=== PATIENT | male | born 1960 | race Caucasian/White ===

== ENCOUNTER 2018-03-16 07:15 | Inpatient (IN) | payer OTHER ==
[2018-03-16] MEDS ORDERED: LR 1,000 ML IV ONE (08:55)
[2018-03-16] MEDS ORDERED: DEXMEDETOMIDINE HCL 400 MCG in NS 100 ML IV SCH (09:00)
[2018-03-16] MEDS ORDERED: BUPIVACAINE 0.25% 30 ML SDV ONE (09:20)
[2018-03-16] MEDS ORDERED: THROMBIN (BOVINE) 20,000 UNIT VIAL TP ONE (09:20)
[2018-03-16] MEDS ORDERED: CHLORHEXIDINE GLUC HIBICLENS 118 ML BTL TP ONE (09:20)
[2018-03-16] MEDS ORDERED: BACITRACIN 50,000 UNITS/10 ML SYR IRR ONE (09:21)
[2018-03-16] MEDS ORDERED: morphINE PF 5 MG/10 ML INJ IT ONE (09:38)
[2018-03-16] MEDS ORDERED: ACETAMINOPHEN 500 MG TAB PO ONE (09:38)
[2018-03-16] MEDS ORDERED: ceFAZolin 2 GM/SWFI 2 GM/20 ML SYR IVP ONE (09:38)
[2018-03-16] MEDS ORDERED: GABAPENTIN 300 MG CAP PO ONE (09:38)
--- NOTE | 2018-03-16 09:38 | PDHPUP ---
History & Physical Update H&P update statement: This history and physical update is based on an assessment of the patient which was completed after admission or registration (within 24 hours), but prior to the surgery/procedure. H&P update: H&P reviewed & patient examined, no change in patient's condition since H&P completed (All questions answered and consents siged. Site marked. )
[2018-03-16] MEDS ORDERED: morphINE SR 15 MG TAB PO ONE (09:40)
[2018-03-16] MEDS ORDERED: CITRATE DEXTROSE SOLN 500 ML BAG ONE (09:54)
--- NOTE | 2018-03-16 10:00 | PDANEPAE ---
ANE History of Present Illness 57 yo male with lumbar stenosis and B LE weakness. ANE Past Medical History - Cardiovascular History Hx Hypertension: Yes Hx Arrhythmias: No Hx Chest Pain: No Hx Coronary Artery / Peripheral Vascular Disease: No Hx CHF / Valvular Disease: No Cardiovascular History Comment: ELEVATED CHOLESTEROL - Pulmonary History Hx COPD: No Hx Asthma/Reactive Airway Disease: No Hx Recent Upper Respiratory Infection: No Hx Oxygen in Use at Home: No Hx Sleep Apnea: No Sleep Apnea Screening Result - Last Documented: Positive - Neurologic History Hx Cerebrovascular Accident: No Hx Seizures: No Hx Dementia: No - Endocrine History Hx Diabetes: No Hypothyroid: No Obesity: no - Renal History Hx Renal Disorders: No - Liver History Hx Hepatic Disorders: No - Neurological & Psychiatric Hx Hx Neurological and Psychiatric Disorders: Yes Neurological / Psychiatric History Comment: severe weakness-bilat legs, low back pain.N/T down legs-L great toe. - Cancer History Hx Cancer: Yes Cancer History Comment: SKIN-basal cell CA - Congenital Disorder History Hx Congenital Disorders: Yes Congenital History Comment: CLUB FEET - GI History Hx Gastrointestinal Disorders: No - Other Health History Other Health History: ROSEACIA-face - Chronic Pain History Chronic Pain: Yes (LOWER BACK) - Surgical History Prior Surgeries: L4/L5 fusion -2013;. LT FOOT RECONSTRUCTION RELATED TO CLUB FOOT. RT FOOT REMVL BONE SPUR. LT EYE STRABISMUS- age 3. RK APARNA EYES ANE Review of Systems Review of Systems: - Exercise capacity METS (RN): 4 METS - Systems EENMT: Reports: no symptoms Cardiac: Reports: no symptoms Respiratory: Reports: no symptoms Neurological: Reports: weakness (B LE) ANE Patient History - Allergies Allergies/Adverse Reactions: No Known Allergies Allergy (Verified 03/13/18 10:13) - Home Medications Home Medications: Lisinopril [Zestril 10 mg (*)] 10 mg PO DAILY 04/30/14 [Last Taken 03/15/18] Simvastatin [Zocor 20 mg] 20 mg PO DAILY18 04/30/14 [Last Taken 03/15/18] - NPO status NPO Since - Liquids (Date): 03/15/18 NPO Since - Liquids (Time): 19:00 NPO Since - Solids (Date): 03/15/18 NPO Since - Solids (Time): 19:00 - Anes Hx Anes Hx: no prior problems - Smoking Hx Smoking Status: Former smoker Marijuana use: No - Family Anes Hx Family Anes Hx: neg - N/A Family Hx Anesthesia Complications: NEG ANE Labs/Vital Signs - Vital Signs Blood Pressure: 133/102 Heart Rate: 80 Respiratory Rate: 16 O2 Sat (%): 98 Height: 182.88 cm Weight: 88.451 kg ANE Physical Exam - Airway Neck exam: FROM Mallampati Score: Class 2 Mouth exam: normal dental/mouth exam - Pulmonary Pulmonary: clear to auscultation - Cardiovascular Cardiovascular: regular rate and rhythym - ASA Status ASA Status: II ANE Anesthesia Plan Anesthesia Plan: general endotracheal anesthesia Lines/Monitors: additional IV
[2018-03-16] MEDS ORDERED: PROPOFOL/EMULSION 500 MG/50 ML BOTTLE IV ONE ×2 (10:06→10:19)
[2018-03-16] MEDS ORDERED: REMIFENTANIL HCL 1 MG VIAL ONE ×2 (10:06→11:59)
[2018-03-16] MEDS ORDERED: ROCURONIUM 50 MG/5 ML VIAL ONE (10:06)
[2018-03-16] MEDS ORDERED: LIDOCAINE 2% 5 ML SDV ONE (10:06)
[2018-03-16] MEDS ORDERED: DEXAMETHASONE 4 MG/ML VIAL ONE (10:06)
[2018-03-16] MEDS ORDERED: fentaNYL 100 MCG/2 ML INJ ONE (10:06)
[2018-03-16] MEDS ORDERED: epHEDrine SULFATE 10 MG/ML SYR ONE (11:10)
[2018-03-16] MEDS ORDERED: morphINE PF 5 MG/10 ML INJ ONE (11:42)
[2018-03-16] MEDS ORDERED: PROPOFOL 200 MG/20 ML VIAL ONE ×2 (11:59→14:01)
[2018-03-16] MEDS ORDERED: ALBUTEROL 3 ML DEYVIAL IH PRN (14:22)
[2018-03-16] MEDS ORDERED: ACETAMINOPHEN 500 MG TAB PO PRN (14:22)
[2018-03-16] MEDS ORDERED: NALOXONE HCL 0.4 MG/ML INJ IVP PRN (14:22)
[2018-03-16] MEDS ORDERED: LR 500 ML IV PRN (14:22)
[2018-03-16] MEDS ORDERED: oxyCODONE IR 5 MG TAB PO PRN (14:22)
[2018-03-16] MEDS ORDERED: DIAZEPAM 5 MG/ML 1 ML SYR IVP PRN (14:22)
[2018-03-16] MEDS ORDERED: fentaNYL 100 MCG/2 ML INJ IVP PRN (14:22)
[2018-03-16] MEDS ORDERED: ONDANSETRON 4 MG/2 ML VIAL ONE (14:23)
--- NOTE | 2018-03-16 14:53 | POSTANESTH ---
Post Anesthetic Evaluation Cardiovascular Status: Normal, Stable Respiratory Status: Normal, Stable Level of Consciousness/Mental Status: Can Participate in Eval, Mildly Sleepy, Arousable Pain Control: Adequate, Prn Tx Ordered Nausea/Vomiting Control: Adequate, Prn Tx Ordered Complications Possibly Related to Anesthesia: None Noted (Moves ext x4.)
[2018-03-16] MEDS ORDERED: diphenhydrAMINE 25 MG CAP PO PRN (15:07)
[2018-03-16] MEDS ORDERED: LACTULOSE 20 GM/30 ML UDCUP PO PRN (15:07)
[2018-03-16] MEDS ORDERED: POLYETHYLENE GLYCOL 3350 17 GM PKT PO PRN (15:07)
[2018-03-16] MEDS ORDERED: BISACODYL 10 MG SUPP PR PRN (15:07)
[2018-03-16] MEDS ORDERED: ONDANSETRON 4 MG/2 ML VIAL IVP PRN (15:07)
[2018-03-16] MEDS ORDERED: MAGNESIUM HYDROXIDE 30 ML UDCUP PO PRN (15:07)
[2018-03-16] MEDS ORDERED: NS W/ 20 KCl/L 1,000 ML IV SCH (15:15)
--- NOTE | 2018-03-16 15:16 | POSTOPPROG ---
Post Op Note Date of Operation: 03/16/18 Surgeon: Jian Hwang Cnc Applications Engineer: FLORENTINO Motta PAC Anesthesia: GET(General Endotracheal) Pre-op Diagnosis: Lumbar stenosis, adjacent level breakdown Post-op Diagnosis: Lumbar stenosis, adjacent level breakdown Indication: Lumbar stenosis, adjacent level breakdown Procedure: L4/5 hardware exploration and removal; L3/4 and L5/S1 TLIF; PSF L3-S1 Inf/Abcess present in the surg proc area at time of surgery?: No EBL: 100-500 Drains: John WILKINSON Addendum - Addendum .: S: low back pain O: NAD A&Ox3 MAEx4 5/5 and equal in BUE and BLE. ZEFERINO drain serosanginous A/P 57y/o male s/p L4/5 hardware exploration and removal; L3/4 and L5/S1 TLIF; PSF L3-S1 -Advance diet as tolerated -PT/OT -Optimize pain management -DVT prophx: TEDs, SCDs, Lovenox POD1 -JPx1 -Post op xrays pending -LSO when OOB -Please notify NS with any change in neuro/motor exam
--- NOTE | 2018-03-16 15:57 | GOP ---
[f rep st] OPERATIVE REPORT DATE OF OPERATION: 03/16/2018 SURGEON: Jian Hwang MD VEGETABLE HARVEST WORKER: MINH Walters ANESTHESIA: General. PREOPERATIVE DIAGNOSIS: 1. Adjacent level breakdown with severe spinal stenosis, L3-L4, and left lateral recess and foraminal stenosis, L5-S1. 2. Lower extremity weakness and radiculopathy. 3. History of prior lumbar fusion, L4-L5. 4. Treatment refractory to nonoperative intervention. POSTOPERATIVE DIAGNOSIS: 1. Adjacent level breakdown with severe spinal stenosis, L3-L4, and left lateral recess and foraminal stenosis, L5-S1. 2. Lower extremity weakness and radiculopathy. 3. History of prior lumbar fusion, L4-L5. 4. Treatment refractory to nonoperative intervention. PROCEDURE PERFORMED: 1. Posterior arthrodesis with approach to L3, L4, L5, and S1. 2. Exploration of prior lumbar hardware, L4-L5, with subsequent removal of nonsegmental hardware from the L4-L5 level from the [employer] system. 3. Posterolateral fusion with bilateral pedicle screw placement at L3, L4, L5, and S1 from [employer] Solera 4.75 system. 4. Posterolateral fusion on the right between L3-L4 and L5-S1 with morselized autograft and allograft. 5. Decompressive laminectomy with bilateral medial facetectomies, L3-L4 and L5- S1. 6. Left-sided L3-L4 transforaminal lumbar interbody fusion with a 9 x 28 mm titanium PEEK elevate cage filled with morselized autograft and allograft. 7. Left-sided L5-S1 transforaminal lumbar interbody fusion with an 8 mm titanium-coated PEEK cage filled with morselized autograft and allograft. 8. Use of intraoperative 3D Stealth navigation. 9. Use of intraoperative fluoroscopy, less than 1 hour physician time. 10. Use of neuromonitoring. 11. Use of the operating microscope. 12. Injection of preservative-free intrathecal narcotics. FINDINGS: per imaging SPECIMENS: None. ESTIMATED BLOOD LOSS: 250 mL. INDICATIONS: The patient has undergone a prior left L4-5 lumbar fusion several years ago from which he did quite well. He presents with low back pain, lower extremity weakness and radiculopathy with adjacent level spinal stenosis at L3- L4 and left lateral recess and foraminal stenosis at L5-S1. After discussion of the risks, benefits, and alternatives, after failing nonoperative intervention, we decided to proceed forth with surgery as described above. DESCRIPTION OF PROCEDURE: The patient was brought to the operating theater and underwent general endotracheal anesthesia without complications. He had appropriate lines placed by Anesthesia. He was flipped prone onto the John table and all bony processes inspected and padded. The low lumbar region was prepped and draped in the usual sterile surgical fashion. A time-out was completed per protocol, and the patient received antibiotics within 1 hour of incision. The incision was infiltrated with Marcaine with epinephrine and taken down with the scalpel blade. Using monopolar, the incision was then taken down in the midline through the lumbodorsal fascia and subperiosteal dissection carried to the transverse processes bilaterally at L3, L5, and S1. We identified the prior hardware, L4-L5. We then sequentially removed the bilateral cap screws at the L4 and L5 levels and passed them off the field. We then passed off the bilateral rods. We used distraction to re-explore the hardware, and he was not noted to have evidence of any motion, which was consistent with a fusion. We then sequentially removed the bilateral pedicle screws from the L4 and L5 levels from the [employer] Polaris system. We attached the 3D Stealth navigation clamp to the spinous process of L5 and completed a 3D Stealth navigation spin. Using 3D Stealth navigation, we placed the pilot control operator helper holes for the bilateral pedicle screws into L3 and S1. We also redirected the left L5 screw. All holes were manually palpated with no evidence of any cortical breaches. We tapped and placed a 6.5 x 50 mm screw on the left L3 bilaterally, into L4, and left-sided S1. A 6.5 x 55 mm screw on the right L3 and right side L5, and 6.5 x 45 mm screw on the left at L5 and right-sided S1; all the [employer] 4.75 system. Another 3D Stealth navigation spin demonstrated good placement of the hardware. At this point, the microscope was brought into the field to assist with microscopic dissection and to maintain illumination and magnification. Using a combination of the bur tip on the drill bit, Kerrison punches, and Leksell rongeur, we completed a decompressive laminectomy with bilateral medial facetectomies, L3-L4 and L5-S1. We completed aggressive facetectomies on the left side L3-L4 and L5-S1. We moved down to L5-S1 where we first distracted the interspace and completed a left L5-S1 diskectomy. We prepared the cartilagenous endplates and measured the interbody space. We then placed an 8 mm titanium-coated PEEK cage filled with morselized autograft and allograft anteriorly toward the midline. We packed additional morcellized autograft into the disk space for the interbody fusion. We let down the distraction and moved up to the L3-4 level. We distracted the disc interspace and completed a left L3-4 diskectomy. We prepared the c cartilagenous endplates and measured the interbody space. We placed a 9 x 28 mm titanium PEEK elevate cage filled with morselized autograft and allograft anteriorly toward the midline. We packed additional morcellized autograft into the disk space for the interbody fusion. At this point, we let down distraction and decorticated the bone on the right side between L3-L4 and L5-S1. The wound was irrigated copiously with bacitracin irrigation. We placed 2 lordotic rods into the heads of the screws between L3 and S1 and secured them down with cap screws, which were then tightened to the forensic science examiner's setting. We placed morselized autograft and allograft on the right side between L3/L4, and L5/S1. A drain was left in the subfascial space. We injected preservative- free intrathecal narcotics, and the wound was then closed in multiple layers using Vicryl sutures to the deep layers and Dermabond for the skin. The patient 's wounds were dressed sterilely. He was then flipped supine onto the transfer cart, where he was awakened, extubated, and taken to the recovery room in stable condition. There were no complications and no noted changes on neuromonitoring throughout the procedure. COMPLICATIONS: None. /[id number]/MODL MTDD
--- NOTE | 2018-03-16 16:03 | PDMN ---
Medical Necessity Medical necessity: C/M review: Patient meets INPT criteria per [facility] S-820 Lumbar fusion: Acute and persistent lumbar stenosis, adjacent level breakdown requiring 03/16/2018 surgery - L4 / L5 hardware exploration and removal;, L3 / L4 and L5 / S1 TLIF; posterior spinal fusion L3 - S1 - (CPTs 23489, [id number]) Inpatient only surgery per Medicare guidelines. PAC anticipates > 2 MN LOS for ongoing med nec for eval and TX of above.
[2018-03-16] MEDS: ceFAZolin 2 GM/SWFI 2 GM/20 ML SYR IVP SCH (18:26)
[2018-03-16] MEDS: ATORVASTATIN CALCIUM 10 MG TAB PO SCH (18:26)
[2018-03-16] MEDS ORDERED: ceFAZolin 2 GM/DEXTROSE 100 ML IV SCH (22:00)
[2018-03-16] MEDS: ACETAMINOPHEN 500 MG TAB PO SCH (23:41)
[2018-03-16] MEDS: FAMOTIDINE 20 MG TAB PO SCH (23:41)
[2018-03-16] MEDS: SENNOSIDES/DOCUSATE SODIUM TAB PO SCH (23:42)
[2018-03-17] MEDS: ACETAMINOPHEN 500 MG TAB PO SCH ×3 (00:42→13:37)
[2018-03-17] MEDS: ceFAZolin 2 GM/SWFI 2 GM/20 ML SYR IVP SCH (02:44)
[2018-03-17] MEDS: ONDANSETRON DISINTEGRATING 4 MG TAB PO PRN ×3 (04:26→20:30)
[2018-03-17] MEDS: oxyCODONE IR 5 MG TAB PO PRN ×5 (06:34→22:28)
--- NOTE | 2018-03-17 07:24 | SOAPPROG ---
SOAP Progress Note Assessment/Plan: Assessment: 57 yo M POD #1 L3-S1 fusion with L3/4, L5/S1 TLIF Plan: stable and doing well overall DC IVF PT/OT scd/michelle/lovenox for DVT prophylaxis lumbar x-rays today please call with neuro changes keep ZEFERINO for now discussed with Dr Joseph 03/17/18 07:22 Subjective: continued back pain, no leg pain, no weakness. Objective: Vital Signs Temp Pulse Resp BP Pulse Ox 36.4 C 79 18 112/76 97 03/17/18 04:32 03/17/18 04:32 03/17/18 04:32 03/17/18 04:32 03/17/18 04:32 03/16/18 03/17/18 03/18/18 05:59 05:59 05:59 Intake Total 2980 Output Total 1500 Balance 1480 AAOx4, +FC PERRL, EOMI 5/5 + light touch C/D/I ICD10 Worksheet Patient Problems: Problems Problem Status Onset Lumbar stenosis Acute
[2018-03-17] MEDS: ENOXAPARIN 40 MG/0.4 ML SYR SC SCH (08:24)
[2018-03-17] MEDS: FAMOTIDINE 20 MG TAB PO SCH ×2 (08:25→20:31)
[2018-03-17] MEDS: SENNOSIDES/DOCUSATE SODIUM TAB PO SCH ×2 (08:25→20:31)
[2018-03-17] MEDS: METHOCARBAMOL 750 MG TAB PO PRN ×2 (09:43→20:31)
[2018-03-17] MEDS: LISINOPRIL 10 MG TAB PO SCH (09:44)
--- NOTE | 2018-03-17 13:42 | ASMTCMCOM ---
CM Note CM Note Notes: Reviewed chart and discussed w/RN. Anticipate dc home independantly when medically ready. Date Signed: 03/17/2018 01:41 PM Electronically Signed By:Mirta Patten RN
[2018-03-17] MEDS: ATORVASTATIN CALCIUM 10 MG TAB PO SCH (18:25)
[2018-03-18] MEDS: ACETAMINOPHEN 500 MG TAB PO SCH ×4 (00:39→21:08)
[2018-03-18] MEDS: oxyCODONE IR 5 MG TAB PO PRN ×6 (04:30→21:08)
--- NOTE | 2018-03-18 07:42 | SOAPPROG ---
SOAP Progress Note Assessment/Plan: Assessment: 57 yo M POD #2 L3-S1 fusion with L3/4, L5/S1 TLIF Plan: stable and doing well overall :) some nausea with pain meds yesterday PT/OT scd/michelle/lovenox for DVT prophylaxis lumbar x-rays look great please call with neuro changes dora quiroz discussed with Dr Joseph 03/17/18 07:22 03/18/18 07:41 Subjective: back pain improving, no leg pain, nausea yesterday Objective: Vital Signs Temp Pulse Resp BP Pulse Ox 36.9 C 87 16 108/68 95 03/18/18 07:18 03/18/18 07:18 03/18/18 07:18 03/18/18 07:18 03/18/18 07:18 03/17/18 03/18/18 03/19/18 05:59 05:59 05:59 Intake Total 2980 2700 Output Total 1500 3080 50 Balance 1480 -380 -50 AAOx4, +FC PERRL, EOMI, no facial droop 5/5 + light touch C/D/I ICD10 Worksheet Patient Problems: Problems Problem Status Onset Lumbar stenosis Acute
[2018-03-18] MEDS: ENOXAPARIN 40 MG/0.4 ML SYR SC SCH (09:02)
[2018-03-18] MEDS: SENNOSIDES/DOCUSATE SODIUM TAB PO SCH ×2 (09:02→21:08)
[2018-03-18] MEDS: FAMOTIDINE 20 MG TAB PO SCH ×2 (09:03→21:08)
[2018-03-18] MEDS: METHOCARBAMOL 750 MG TAB PO PRN (13:10)
[2018-03-18] MEDS: LISINOPRIL 10 MG TAB PO SCH (16:05)
[2018-03-18] MEDS: ATORVASTATIN CALCIUM 10 MG TAB PO SCH (17:10)
[2018-03-19] MEDS: oxyCODONE IR 5 MG TAB PO PRN ×3 (01:06→09:13)
[2018-03-19] MEDS: ACETAMINOPHEN 500 MG TAB PO SCH (05:09)
[2018-03-19] MEDS: METHOCARBAMOL 750 MG TAB PO PRN (05:10)
--- NOTE | 2018-03-19 07:29 | NEUSURGPN ---
Date of Surgery: 03/16/18 Post Op Day: 3 Assessment/Plan: Assessment: 57 yo M POD #3 L3-S1 fusion with L3/4, L5/S1 TLIF Plan: -neuro stable and doing well -some nausea with pain meds yesterday-will dc with Zofran -PT/OT-CPM -scd/michelle/lovenox for DVT prophylaxis -lumbar x-rays look good -please call with neuro changes -gabriella removed -CDI -discussed with Dr Hwang -dc later today Subjective: Awake and alert. NAD. Eating/drinking and voiding. No f/c/n/v/d. Objective: AAOx4, +FC PERRLA, EOMI, no facial droop 5/5 + light touch C/D/I Neuro Check Frequency: per routine Urinary Catheter in Place: No Catheter Insertion Date: 03/16/18 - Physician Discussed Patient with : Eri Neurosurgery Physical Exam - Vitals, I&O, Labs I and O 03/18/18 03/19/18 03/20/18 05:59 05:59 05:59 Intake Total 2700 Output Total 3080 50 Balance -380 -50 Intake: Oral (ml) 2700 Output: Urine (ml) 2875 Urinal 2875 GABRIELLA Drain Output (ml) 205 50 Back John Restrepo 205 50 Other: Intake Quantity Yes Sufficient Number of Voids Toilet 1 Urinal 1 Number of Stools Toilet 1 Vital Signs Temp Pulse Resp BP Pulse Ox 36.6 C 79 17 144/91 H 96 03/19/18 00:00 03/19/18 00:00 03/19/18 00:00 03/19/18 00:00 03/19/18 00:00 ICD10 Worksheet Patient Problems: Problems Problem Status Onset Lumbar stenosis Acute
[2018-03-19 07:46] VITALS: BP 121/83
[2018-03-19] MEDS: FAMOTIDINE 20 MG TAB PO SCH (09:13)
[2018-03-19] MEDS: SENNOSIDES/DOCUSATE SODIUM TAB PO SCH (09:13)
[2018-03-19] MEDS: ENOXAPARIN 40 MG/0.4 ML SYR SC SCH (09:13)
[2018-03-19] MEDS: LISINOPRIL 10 MG TAB PO SCH (09:14)
== END 2018-03-19 09:45 | disposition home or self-care (01) | DRG 460 ==
LOC: F3N 08:45
PROVIDERS: ADMIT Neurological Surgery; ATTEND Neurological Surgery
PROC: 00NY0ZZ Release Lumbar Spinal Cord, Open Approach (ICD-10-PCS; principal; 2018-03-16 10:15)
PROC: 0SG00AJ Fusion of Lumbar Vertebral Joint with Interbody Fusion Device, Posterior Approach, Anterior Column, Open Approach (ICD-10-PCS; principal; 2018-03-16 10:15)
PROC: 0SG30A0 Fusion of Lumbosacral Joint with Interbody Fusion Device, Anterior Approach, Anterior Column, Open Approach (ICD-10-PCS; principal; 2018-03-16 10:15)
PROC: 4A10X4G Monitoring of Central Nervous Electrical Activity, Intraoperative, External Approach (ICD-10-PCS; principal; 2018-03-16 10:15)
PROC: 0SP00AZ Removal of Interbody Fusion Device from Lumbar Vertebral Joint, Open Approach (ICD-10-PCS; principal; 2018-03-16 10:15)
PROC: BR191ZZ Fluoroscopy of Lumbar Spine using Low Osmolar Contrast (ICD-10-PCS; principal; 2018-03-16 10:15)
PROC: 8E0WXBZ Computer Assisted Procedure of Trunk Region (ICD-10-PCS; principal; 2018-03-16 10:15)
PROC: 0SP30AZ Removal of Interbody Fusion Device from Lumbosacral Joint, Open Approach (ICD-10-PCS; principal; 2018-03-16 10:15)
DX: M47.27 Other spondylosis with radiculopathy, lumbosacral region (principal); M48.062 Spinal stenosis, lumbar region with neurogenic claudication; M51.36 Other intervertebral disc degeneration, lumbar region; Z98.1 Arthrodesis status; L71.9 Rosacea, unspecified; Z85.828 Personal history of other malignant neoplasm of skin; Z87.891 Personal history of nicotine dependence
CPT/HCPCS: 97116-GP; 97161-GP; 97165-GO; 97535-GO; C1713; J0171; J0690; J1100; J1650; J2270; J2274; J2405; J2704; J3010; J7060